=== PATIENT | male | born 1945 | race Caucasian/White ===

== ENCOUNTER 2018-11-24 02:12 | Emergency (ER) | payer MEDICARE, BC ==
[2018-11-24 03:17] LABS: #Eosinphils 0.1 thou/uL (0.0-0.7); #Lymphocytes 1.5 thou/uL (1.20-3.40); #Monocytes 0.6 thou/uL (0.11-0.59); #Neutrophils 5.7 thou/uL (1.40-6.50); %Eosinophils 1.2 % (0.0-10.0); %Lymphocytes 19.4 % (21.0-51.0); %Monocytes 7.4 % (0.0-10.0); Hemoglobin 14.2 g/dL (14.0-18.0); Mean Corpuscular HGB CONC 33.4 g/dL (32.0-36.0); Mean Corpuscular Hemoglobin 27.7 pg (27.0-31.0); Mean Corpuscular Volume 82.9 fL (78.0-98.0); Mean Platelet Volume 7.2 fL (7.4-10.4); Platelet Count 257 thou/uL (130-400); RBC Distribution Width 13.4 % (11.5-14.5); Red Blood Cell (RBC) Count 5.12 mill/uL (4.70-6.10)
[2018-11-24 03:25] LABS: PTT 29.6 SEC (22.9-36.1); Prothrombin Time 12.8 SEC (12.0-14.7)
[2018-11-24 03:36] LABS: Anion Gap 17 mmol/L (10-20); BUN (Urea Nitrogen) 18 mg/dL (8.4-25.7); Calc. Creatinine Clearance 0 mL/min (70-130); Calcium 9.5 mg/dL (7.8-10.44); Carbon Dioxide 22 mmol/L (23-31); Chloride 103 mmol/L (98-107); Estimated GFR-MDRD 82; Glucose 123 mg/dL (83-110); Potassium 3.8 mmol/L (3.5-5.1); Sodium 138 mmol/L (136-145)
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
== END 2018-11-24 04:06 | disposition home or self-care (01) ==
LOC: ERS 02:12
DX: S01.81XA Laceration without foreign body of other part of head, initial encounter (principal); E78.5 Hyperlipidemia, unspecified; I10 Essential (primary) hypertension; V89.2XXA Person injured in unspecified motor-vehicle accident, traffic, initial encounter; W22.11XA Striking against or struck by driver side automobile airbag, initial encounter
CPT/HCPCS: 12013; 36415; 70450; 80048; 85025; 85610; 85730

== ENCOUNTER 2020-01-14 07:13 | Outpatient (CLI) | payer MEDICARE, BC ==
[2020-01-14 10:52] LABS: Hemoglobin 15.1 g/dL (14.0-18.0); Mean Corpuscular Volume 82.6 fL (78.0-98.0); Mean Platelet Volume 7.6 fL (7.4-10.4); Platelet Count 272 thou/uL (130-400); RBC Distribution Width 12.9 % (11.5-14.5); Red Blood Cell (RBC) Count 5.38 mill/uL (4.70-6.10); White Blood Cell (WBC) Count 9.6 thou/uL (4.8-10.8)
[2020-01-14 10:56] LABS: Bacteria/HPF None Seen HPF (None Seen); Bilirubin Negative (Negative); Blood, Urine Negative (Negative); Clarity Clear (Clear); Glucose, Urine (Dipstick) Greater than 1000 mg/dL (Negative); Leukocyte Negative Leu/uL (Negative); Nitrite Negative (Negative); Protein, Urine (Dipstick) Negative (Neg-Trace); RBC/HPF 0-3 HPF (0-3); Squamous Epithelial None Seen HPF (0-3); Urobilinogen Normal mg/dL (Less than 2); WBC/HPF 0-3 HPF (0-3)
[2020-01-14 10:58] LABS: INR-International Normal Ratio 0.9; Prothrombin Time 12.2 SEC (12.0-14.7)
[2020-01-14 10:59] LABS: PTT 28.7 SEC (22.9-36.1)
[2020-01-14 11:16] LABS: Anion Gap 13 mmol/L (10-20); BUN (Urea Nitrogen) 15 mg/dL (8.4-25.7); Calc. Creatinine Clearance 0 mL/min (70-130); Calcium 9.6 mg/dL (7.8-10.44); Carbon Dioxide 26 mmol/L (23-31); Chloride 102 mmol/L (98-107); Estimated GFR-MDRD Greater than 90; Glucose 134 mg/dL (83-110); Potassium 4.3 mmol/L (3.5-5.1); Sodium 137 mmol/L (136-145)
== END 2020-01-14 07:14 | disposition home or self-care (01) ==
LOC: LABBT 07:13
PROVIDERS: ATTEND Urology
DX: Z01.818 Encounter for other preprocedural examination (principal); N40.1 Benign prostatic hyperplasia with lower urinary tract symptoms
CPT/HCPCS: 80048; 81001; 85027; 85610; 85730; 87086; 93005; 93010

== ENCOUNTER 2020-01-20 06:19 | Observation (INO) | payer MEDICARE, BC ==
[2020-01-20] MEDS ORDERED: Levofloxacin 500 mg/D5W 100 ml Premix Bag ONE (08:59)
[2020-01-20] MEDS ORDERED: Fentanyl 100 MCG/2 ML VIAL ONE (09:31)
[2020-01-20] MEDS ORDERED: Midazolam HCl 2 mg/2 ml Vial ONE (09:31)
[2020-01-20] MEDS ORDERED: PROPOFOL 200 MG/20 ML VIAL ONE (10:40)
[2020-01-20] MEDS ORDERED: EPHEDRINE 25 MG/5 ML SYRINGE ONE (10:40)
[2020-01-20] MEDS ORDERED: PHENYLEPHRINE-NS 100 MCG/ML 10 ML SYRINGE ONE (10:40)
[2020-01-20] MEDS ORDERED: Ondansetron PF 4 MG/2 ML Vial ONE (10:40)
[2020-01-20] MEDS ORDERED: Rocuronium Bromide 10 MG/ML (10ML VIAL) ONE (10:40)
[2020-01-20] MEDS ORDERED: diphenhydrAMINE 50 MG/ML VIAL ONE (10:40)
[2020-01-20] MEDS ORDERED: Dexamethasone 20 MG/5 ML VIAL ONE (10:40)
[2020-01-20] MEDS ORDERED: B & O ONE (11:11)
[2020-01-20] MEDS ORDERED: hydrALAZINE 20 MG/ML VIAL SLOW IVP PRN (11:21)
[2020-01-20] MEDS ORDERED: diphenhydrAMINE 25 MG CAP PO PRN (11:21)
[2020-01-20] MEDS ORDERED: Oxybutynin 5 MG TAB PO PRN (11:21)
[2020-01-20] MEDS ORDERED: Hyoscyamine Sulfate SL 0.125 mg Tablet SL PRN (11:21)
[2020-01-20] MEDS ORDERED: Acetaminophen 500 MG TAB PO PRN (11:21)
[2020-01-20] MEDS ORDERED: Morphine 2 MG/ML SYRINGE SLOW IVP PRN (11:21)
[2020-01-20] MEDS ORDERED: Phenazopyridine HCl 97.5 MG TABLET PO PRN (11:21)
[2020-01-20] MEDS ORDERED: Ondansetron PF 4 MG/2 ML Vial IVP PRN (11:21)
[2020-01-20] MEDS ORDERED: Bisacodyl 10 MG SUPP PR PRN (11:21)
[2020-01-20] MEDS ORDERED: Mag-Al 1200 mg/1200 mg/30 ML UDCUP PO PRN (11:21)
[2020-01-20] MEDS ORDERED: traMADol HCl 50 MG TAB PO PRN (11:24)
[2020-01-20] MEDS ORDERED: Meperidine HCl/PF 25 MG/ML VIAL SLOW IVP PRN (11:27)
[2020-01-20] MEDS ORDERED: Promethazine HCl 25 MG/ML VIAL IM PRN (11:27)
[2020-01-20] MEDS ORDERED: Ondansetron HCl/PF 4 MG/2 ML Vial IVP PRN (11:27)
--- NOTE | 2020-01-20 13:04 | OP ---
DATE OF PROCEDURE: 01/20/2020 SERVICE: Urology. PREOPERATIVE DIAGNOSIS: BPH with urinary obstruction. POSTOPERATIVE DIAGNOSIS: BPH with urinary obstruction. PROCEDURE PERFORMED: Transurethral resection of prostate. INDICATION FOR PROCEDURE: Mr. Lainez is a 74-year-old white male with BPH and severe urinary symptoms. We evaluated him for UroLift, but unfortunately, his prostate was too big with intravesical extension, so we elected to do a TURP instead. Risks and benefits of surgery were discussed and he has agreed to proceed forward. DESCRIPTION OF PROCEDURE: After identification of armband and verification of consent, the patient was brought back to the operating room, where he underwent general anesthesia with an LMA. He was placed in dorsal lithotomy position and prepped and draped in usual sterile fashion. After appropriate time-out, a lubricated 26-Estonian resectoscope sheath with visual obturator was passed through the urethra up into the prostate, which was extremely obstructive and previously had been described on outpatient cystoscopy. We continued passage into the bladder. Both ureteral orifices were identified near, but not on to the prostate. The visual obturator was switched out for the prostate bipolar resectoscope loop, and resection was started at the bladder neck and carried out circumferentially up to the verumontanum, taking great care not to pass the verumontanum. All prostate tissue was resected down until the prostate was wide open. There probably was more prostate tissue to do laterally, but I elected to leave this as I was getting relatively close to the capsule and I did not want to cause a perforation. The prostate was extremely wide open and I felt satisfied the patient should be able to urinate very well with this for a long period of time. Meticulous hemostasis was performed, and all prostate chips were evacuated using a combination of the Ellik evacuator and the resectoscope loop. Upon completion, there were no prostate chips left. The bleeding was noted to be minimal. Further hemostasis was performed until there was no bleeding with the irrigation off. Both ureters were identified in orthotopic location, unharmed at the end of the case. The resectoscope was then removed with the bladder full, and a 22-Estonian three-way Manuel catheter was placed into the bladder with ease with 30 mL of sterile water instilled into the balloon. CBI was initiated, and B and O suppository was placed in the patient's rectum. The patient was then taken out of positioning, awakened, and taken to PACU for recovery in stable condition. COMPLICATIONS: None. ESTIMATED BLOOD LOSS: Minimal. RETAINED TUBES AND DRAINS: 22-Estonian three-way Manuel catheter on CBI. SPECIMENS: Prostate chips for routine pathologic analysis. DISPOSITION: The patient will be kept in the hospital overnight. We will plan a void trial in the morning and discharge home thereafter. Job ID: [id number]
[2020-01-20 15:44] VITALS: BMI 28.7
[2020-01-20] MEDS: Icosapent Ethyl 1 GM CAPSULE PO SCH (20:36)
[2020-01-20] MEDS: Docusate 100 MG CAP PO SCH (20:36)
[2020-01-20] MEDS ORDERED: Atorvastatin Calcium 40 MG TAB PO SCH (21:00)
[2020-01-21 05:12] LABS: #Lymphocytes 1.6 thou/uL (1.20-3.40); #Neutrophils 10.8 thou/uL (1.40-6.50); %Eosinophils 0.3 % (0.0-10.0); %Lymphocytes 11.6 % (21.0-51.0); %Monocytes 7.4 % (0.0-10.0); %Neutrophils 80.7 % (42.0-75.0); Hemoglobin 12.8 g/dL (14.0-18.0); Mean Corpuscular HGB CONC 33.8 g/dL (32.0-36.0); Mean Corpuscular Hemoglobin 28.5 pg (27.0-31.0); Mean Corpuscular Volume 84.3 fL (78.0-98.0); Mean Platelet Volume 7.5 fL (7.4-10.4); Platelet Count 230 thou/uL (130-400); Red Blood Cell (RBC) Count 4.51 mill/uL (4.70-6.10); White Blood Cell (WBC) Count 13.4 thou/uL (4.8-10.8)
[2020-01-21 06:10] LABS: Anion Gap 14 mmol/L (10-20); BUN (Urea Nitrogen) 15 mg/dL (8.4-25.7); Calc. Creatinine Clearance 104 mL/min (70-130); Calcium 8.7 mg/dL (7.8-10.44); Carbon Dioxide 23 mmol/L (23-31); Chloride 102 mmol/L (98-107); Estimated GFR-MDRD Greater than 90; Glucose 142 mg/dL (83-110); Potassium 3.8 mmol/L (3.5-5.1); Sodium 135 mmol/L (136-145)
[2020-01-21] MEDS: Icosapent Ethyl 1 GM CAPSULE PO SCH (08:50)
[2020-01-21] MEDS: Docusate 100 MG CAP PO SCH (08:50)
[2020-01-21] MEDS ORDERED: Dapagliflozin Propanediol [Farxiga] 5 MG PO SCH (09:00)
[2020-01-21] MEDS ORDERED: Isosorbide Mononitrate (ER) 30 MG TAB PO SCH (09:00)
[2020-01-21] MEDS ORDERED: FLUoxetine HCl 20 MG CAP PO SCH (09:00)
[2020-01-21 11:41] VITALS: BP 143/73; TEMP 97.4
== END 2020-01-21 14:50 | disposition home or self-care (01) ==
LOC: SDC 06:19 → SURG B 12:57
PROVIDERS: ADMIT Urology; ATTEND Urology
PROC: 0VT08ZZ Resection of Prostate, Via Natural or Artificial Opening Endoscopic (ICD-10-PCS; principal; 2020-01-20)
DX: N40.1 Benign prostatic hyperplasia with lower urinary tract symptoms (principal); N13.8 Other obstructive and reflux uropathy; R35.1 Nocturia; Z88.5 Allergy status to narcotic agent
CPT/HCPCS: 52601; 80048; 85025; 88305; 96365; G0378 ×2; 36415; J1100; J1200; J1956; J2250; J2405; J2704; J3010

== ENCOUNTER 2022-01-02 08:42 | Outpatient (CLI) | payer MEDICARE ==
[2022-01-02 09:44] LABS: Estimated GFR-MDRD - POC Greater than 90
[2022-01-02] MEDS ORDERED: Iopamidol-370 76% 500 ML 1 ML ONE (10:21)
== END 2022-01-02 08:43 | disposition home or self-care (01) ==
LOC: BICCT 08:42
PROVIDERS: ATTEND Urology
DX: R31.0 Gross hematuria (principal); N40.0 Benign prostatic hyperplasia without lower urinary tract symptoms; I25.10 Atherosclerotic heart disease of native coronary artery without angina pectoris
CPT/HCPCS: 74178; 82565; Q9967

== ENCOUNTER 2023-05-08 15:12 | Observation (INO) | payer MEDICARE ==
[2023-05-08 16:05] LABS: #Basophils 0.1 thou/uL (0.0-0.2); #Eosinphils 0.2 thou/uL (0.0-0.7); #Monocytes 0.8 thou/uL (0.11-0.59); #Neutrophils 6.9 thou/uL (1.40-6.50); %Basophils 0.8 % (0.0-1.0); %Eosinophils 1.7 % (0.0-10.0); %Lymphocytes 19.2 % (21.0-51.0); %Monocytes 8.5 % (0.0-10.0); %Neutrophils 69.4 % (42.0-75.0); Hemoglobin 12.7 g/dL (14.0-18.0); Mean Corpuscular HGB CONC 33.7 g/dL (32.0-36.0); Mean Corpuscular Volume 83.2 fl (78.0-98.0); Mean Platelet Volume 9.5 fL (7.4-10.4); Platelet Count 301 10x3/uL (130-400); RBC Distribution Width 13.8 % (11.5-14.5); Red Blood Cell (RBC) Count 4.53 mill/uL (4.70-6.10); White Blood Cell (WBC) Count 9.9 10x3/uL (4.8-10.8)
[2023-05-08 16:29] LABS: ALT (SGPT) 19 U/L (8-55); AST (SGOT) 14 U/L (5-34); Alkaline Phosphatase 68 U/L (40-110); Anion Gap 11 mmol/L (10-20); BUN (Urea Nitrogen) 13 mg/dL (8.4-25.7); Bilirubin, Total Less than 0.2 mg/dL (0.2-1.2); Calc. Creatinine Clearance 0 mL/min (70-130); Calcium 8.9 mg/dL (7.8-10.44); Carbon Dioxide 22 mmol/L (23-31); Chloride 104 mmol/L (98-107); Estimated GFR 72; Globulin 3.2 g/dL (2.4-3.5); Glucose 174 mg/dL (83-110); Potassium 3.6 mmol/L (3.5-5.1); Protein, Total 7.2 g/dL (5.8-8.1); Sodium 133 mmol/L (136-145)
[2023-05-08 17:32] LABS: Magnesium 1.6 mg/dL (1.6-2.6)
[2023-05-08] MEDS ORDERED: Aspirin Chewable 81 MG TAB ONE (18:14)
[2023-05-08 18:30] LABS: Bacteria/HPF None Seen HPF (None Seen); Bilirubin Negative (Negative); Blood, Urine Negative (Negative); CAUTI Indications for Culture Alt mental st,lethar; Clarity Clear (Clear); Glucose, Urine (Dipstick) 30 mg/dL (Negative); Ketone, Urine Negative (Negative); Leukocyte Negative Leu/uL (Negative); Nitrite Negative (Negative); Protein, Urine (Dipstick) Negative (Neg-Trace); RBC/HPF 0-3 HPF (0-3); Specific Gravity, Urine 1.009 (1.002-1.036); Squamous Epithelial None Seen HPF (0-3); Urobilinogen Normal mg/dL (Less than 2); WBC/HPF 0-3 HPF (0-3)
[2023-05-08 18:31] LABS: Urine Culture Reflex No No
[2023-05-08] MEDS ORDERED: Ondansetron PF 4 MG/2 ML Vial IVP PRN (20:42)
[2023-05-08] MEDS ORDERED: Ondansetron ODT 4 MG TAB PO PRN (20:42)
[2023-05-08] MEDS ORDERED: Acetaminophen 325 MG TAB PO PRN (20:44)
[2023-05-08 21:09] LABS: Troponin I Less than 0.010 ng/mL (< 0.028)
[2023-05-08 21:13] LABS: Phosphorus 2.5 mg/dL (2.3-4.7)
[2023-05-08 22:59] VITALS: BMI 29.2
[2023-05-08 23:36] LABS: Troponin I Less than 0.010 ng/mL (< 0.028)
[2023-05-09 04:49] LABS: %Eosinophils 2.5 % (0.0-10.0); %Lymphocytes 24.1 % (21.0-51.0); %Monocytes 9.3 % (0.0-10.0); %Neutrophils 62.6 % (42.0-75.0); Hemoglobin 11.7 g/dL (14.0-18.0); Mean Corpuscular Hemoglobin 27.2 pg (27.0-31.0); Mean Corpuscular Volume 82.6 fl (78.0-98.0); Mean Platelet Volume 9.3 fL (7.4-10.4); Platelet Count 263 10x3/uL (130-400); RBC Distribution Width 13.8 % (11.5-14.5)
[2023-05-09 04:50] LABS: #Basophils 0.1 thou/uL (0.0-0.2); #Eosinphils 0.2 thou/uL (0.0-0.7); #Monocytes 0.7 thou/uL (0.11-0.59)
[2023-05-09 04:53] LABS: Hemoglobin A1c 6.5 % (4.0-6.0)
[2023-05-09 05:12] LABS: Anion Gap 12 mmol/L (10-20); BUN (Urea Nitrogen) 10 mg/dL (8.4-25.7); Calc. Creatinine Clearance 100 mL/min (70-130); Calcium 8.8 mg/dL (7.8-10.44); Carbon Dioxide 26 mmol/L (23-31); Chloride 105 mmol/L (98-107); Estimated GFR 91; Glucose 146 mg/dL (83-110); Iron 66 ug/dL (65-175); Iron Binding Capacity, Total 266 mcg/dL (261-462); Sodium 139 mmol/L (136-145)
[2023-05-09] MEDS ORDERED: Hydrochlorothiazide 25 MG TAB PO SCH (09:00)
[2023-05-09] MEDS ORDERED: Finasteride 5 MG TAB PO SCH (09:00)
[2023-05-09] MEDS ORDERED: Ezetimibe 10 MG TAB PO SCH (09:00)
[2023-05-09] MEDS ORDERED: Aspirin 81 mg Enteric Coated Tablet PO SCH (09:00)
[2023-05-09] MEDS ORDERED: FLUoxetine HCl 20 MG CAP PO SCH (09:00)
[2023-05-09] MEDS ORDERED: Losartan 25 MG TAB PO SCH (09:00)
[2023-05-09] MEDS ORDERED: Lactated Ringer's 1,000 ML IV SCH (11:00)
[2023-05-09] MEDS ORDERED: Lactated Ringer's 500 ML IV SCH (11:00)
[2023-05-09 12:22] VITALS: BP 120/58; TEMP 98.1
[2023-05-09] MEDS ORDERED: Icosapent Ethyl 1 GM CAPSULE PO SCH (17:00)
[2023-05-09] MEDS ORDERED: Atorvastatin Calcium 40 MG TAB PO SCH (21:00)
== END 2023-05-09 16:25 | disposition home or self-care (01) ==
LOC: ERS 15:12 → 2SW 20:06
PROVIDERS: ADMIT Student in an Organized Health Care Education/Training Program; ATTEND Family Medicine
DX: R53.1 Weakness (principal); I10 Essential (primary) hypertension; E78.5 Hyperlipidemia, unspecified; D64.9 Anemia, unspecified; R73.9 Hyperglycemia, unspecified; R01.1 Cardiac murmur, unspecified; I25.10 Atherosclerotic heart disease of native coronary artery without angina pectoris; N40.0 Benign prostatic hyperplasia without lower urinary tract symptoms; Z88.5 Allergy status to narcotic agent; Z79.82 Long term (current) use of aspirin; Z79.899 Other long term (current) drug therapy
CPT/HCPCS: 70450; 71045; 80048; 81001; 82550; 82728; 83036; 83540; 83550; 83605; 83735; 83880; 84100; 84484 ×2; 85025; 93005; 93306; 96360; 99285; G0378 ×3; 36415; 80053; 84443; J7120